=== PATIENT | male | born 1945 | race Caucasian/White ===

== ENCOUNTER 2017-07-15 12:16 | Emergency (ER) | payer OTHER ==
[~2017-07-15] VITALS: Ht 195.6 cm; Wt 102.3 kg
[~2017-07-15 12:16] MED LIST: CENTRUM SILVER1 CTB; ELIQUIS 5MG PO; LORTAB 5/500 501 TAB PO; MULTAQ400 MG PO; OMEGA-3 FISH1200 MG; TRAVATAN Z 5 ML5 ML; ZOCOR 10MG10 MG
[2017-07-15 12:20] VITALS: TEMP 97.7
[2017-07-15] MEDS ORDERED: LIPITOR 40MG TA40 MG PO (12:43)
[2017-07-15] MEDS ORDERED: ASPIRIN 81M81 MG/TA2 PO (12:44)
[2017-07-15] MEDS ORDERED: FLAX OIL1000 MG PO (12:46)
[2017-07-15] MEDS ORDERED: MAG-OX 400400 MG/TAB PO (12:48)
[2017-07-15 13:01] LABS: BASO # 0.1 (0.0-0.2); EOS # 1.8 (0.0-0.7); EOS % 20.6 % (0-4.0); GRAN # 4.6 (1.4-6.5); GRAN % 53.2 % (42.2-75.2); HEMOGLOBIN 14.7 g/dl (13.5-18.0); LYMPH # 1.6 (1.2-3.4); LYMPH % 18.2 % (20.0-51.0); MEAN CELL VOLUME 95 fl (80.0-100.0); MEAN CORPUSCULAR HEMOGLOBIN 31 pg (27.0-31.0); MEAN CORPUSCULAR HGB CONC 33 g/dl (33.0-37.0); MEAN PLATELET VOLUME 10.3 fl (7.4-10.4); MONO # 0.6 (0.1-0.6); MONO % 6.8 % (1.7-9.3); PLATELET COUNT 194 K/mm3 (130-400); RED BLOOD COUNT 4.73 M/mm3 (4.20-5.60); REDCELL DISTRIBUTION WIDTH-CV 13.5 % (11.5-14.5); WHITE BLOOD COUNT 8.7 K/mm3 (4.8-10.8)
[2017-07-15 13:09] LABS: PROTHROMBIN TIME 11.2 SECONDS (9.7-12.8)
[2017-07-15 13:11] LABS: ADJUSTED CALCIUM 9.4 mg/dL (8.4-10.2); ALANINE AMINOTRANSFERASE 39 U/L (21-72); ALBUMIN 4.2 gm/dL (3.5-5.0); ALKALINE PHOSPHATASE 116 U/L (50-136); ANION GAP 12 mmol/L (7-16); BLOOD UREA NITROGEN 14 mg/dL (9-20); CALCIUM 9.6 mg/dL (8.4-10.2); CARBON DIOXIDE 24 mmol/L (22-30); CHLORIDE 104 mmol/L (98-107); CREATININE, serum 0.83 mg/dL (0.66-1.25); GLUCOSE 99 mg/dL (74-106); POTASSIUM 4.5 mmol/L (3.4-5.0); SODIUM 140 mmol/L (137-145); TOTAL PROTEIN 7.1 gm/dL (6.4-8.2)
[2017-07-15 13:12] LABS: PARTIAL THROMBOPLASTIN TIME 33.6 SECONDS (26.0-37.0)
[2017-07-15 13:24] LABS: TROPONIN-I < 0.012 ng/mL (0.000-0.034)
[2017-07-15 13:27] LABS: ADD PATHOLOGY DIFF REVIEW NO
[2017-07-15 13:38] LABS: BAND 6 % (0-10); EOSINOPHIL 16 % (0-4); NEUTROPHILS 52 % (42.0-75.2); PLATELET ESTIMATE NORMAL (NORMAL); TOTAL CELLS COUNTED 100
[2017-07-15 15:20] VITALS: BP 106/58; PULSE 70
== END 2017-07-15 15:35 | disposition home or self-care (01) ==
LOC: COL.ER 12:16
PROVIDERS: Family Medicine
DX: I48.91 Unspecified atrial fibrillation (principal); I95.9 Hypotension, unspecified; Z79.82 Long term (current) use of aspirin
CPT/HCPCS: J2704; J7030

== ENCOUNTER 2017-11-29 12:41 | Observation (INO) | payer MEDICARE, OTHER ==
[2017-11-29] VITALS (10 sets, daily range): BP systolic 113–141; BP diastolic 50–67; PULSE 14–69; TEMP 97.2–98.9
[~2017-11-29] VITALS: Ht 195.6 cm; Wt 103.1 kg
[~2017-11-29 12:41] MED LIST changes: +ASPIRIN 81M81 MG/TA2 PO; +FLAX OIL1000 MG PO; +LIPITOR 40MG TA40 MG PO; +MAG-OX 400400 MG/TAB PO
[2017-11-29] MEDS ORDERED: COUMADIN 5MG5 MG/TAB PO (13:44)
[2017-11-29] MEDS ORDERED: PACERONE400 MG PO (13:45)
[2017-11-29] MEDS ORDERED: NATURAL FLAX1000 MG PO (13:46)
[2017-11-29] MEDS ORDERED: XALATAN EYE DROPS OU (13:46)
[2017-11-29] MEDS ORDERED: CENTRUM SILVER1 CTB PO (13:47)
[2017-11-30 02:14] VITALS: BP 119/60; PULSE 56; TEMP 97.4
[2017-11-30 05:54] VITALS: BP 120/59; PULSE 62; TEMP 98.4
[2017-11-30 06:47] LABS: HEMATOCRIT 39.1 % (42.0-52.0); HEMOGLOBIN 12.5 g/dl (13.5-18.0); MEAN CELL VOLUME 99 fl (80.0-100.0); MEAN CORPUSCULAR HEMOGLOBIN 32 pg (27.0-31.0); MEAN CORPUSCULAR HGB CONC 32 g/dl (33.0-37.0); MEAN PLATELET VOLUME 10.1 fl (7.4-10.4); PLATELET COUNT 202 K/mm3 (130-400); RED BLOOD COUNT 3.96 M/mm3 (4.20-5.60); REDCELL DISTRIBUTION WIDTH-CV 13.5 % (11.5-14.5)
[2017-11-30 10:03] VITALS: BP 101/52; PULSE 56; TEMP 97.7
[2017-11-30 14:10] VITALS: BP 107/52; PULSE 63; TEMP 97.6
[2017-11-30 18:15] VITALS: BP 104/50; PULSE 57; TEMP 98.6
[2017-11-30 22:27] VITALS: BP 109/46; PULSE 60; TEMP 97.5
[2017-12-01 02:10] VITALS: BP 105/55; PULSE 52; TEMP 98.4
[2017-12-01 05:11] VITALS: BP 127/55; PULSE 51; TEMP 98.3
[2017-12-01 09:16] VITALS: BP 117/47; PULSE 58; TEMP 97.5
== END 2017-12-01 11:40 | disposition home or self-care (01) ==
LOC: SDCO 12:41 → SURG 17:25 → SDCO 11-30 15:41 → SURG 11-30 15:41
PROVIDERS: Urology
DX: N40.1 Benign prostatic hyperplasia with lower urinary tract symptoms (principal); R33.8 Other retention of urine; R31.0 Gross hematuria; I35.1 Nonrheumatic aortic (valve) insufficiency; I25.10 Atherosclerotic heart disease of native coronary artery without angina pectoris; I10 Essential (primary) hypertension; Z90.49 Acquired absence of other specified parts of digestive tract; Z95.818 Presence of other cardiac implants and grafts; Z79.01 Long term (current) use of anticoagulants; Z87.891 Personal history of nicotine dependence; Z80.3 Family history of malignant neoplasm of breast; Z82.49 Family history of ischemic heart disease and other diseases of the circulatory system
CPT/HCPCS: OP; G0378; J0690; J1100; J2250; J2270; J2405; J2704; J3010; J7120

== ENCOUNTER 2017-12-12 17:07 | Inpatient (IN) | payer MEDICARE, OTHER ==
[~2017-12-12] VITALS: Ht 195.6 cm; Wt 103.2 kg
[~2017-12-12 17:07] MED LIST changes: +CENTRUM SILVER1 CTB PO; +COUMADIN 5MG5 MG/TAB PO; +NATURAL FLAX1000 MG PO; +PACERONE400 MG PO; +XALATAN EYE DROPS OU
[2017-12-12 17:49] LABS: BASO # 0.1 (0.0-0.2); BASO % 0.9 % (0.0-2.0); EOS # 1.8 (0.0-0.7); EOS % 17.2 % (0-4.0); GRAN # 6.2 (1.4-6.5); GRAN % 59.4 % (42.2-75.2); HEMATOCRIT 40.1 % (42.0-52.0); HEMOGLOBIN 13.1 g/dl (13.5-18.0); LYMPH # 1.8 (1.2-3.4); LYMPH % 17.5 % (20.0-51.0); MEAN CELL VOLUME 97 fl (80.0-100.0); MEAN CORPUSCULAR HEMOGLOBIN 32 pg (27.0-31.0); MEAN CORPUSCULAR HGB CONC 33 g/dl (33.0-37.0); MEAN PLATELET VOLUME 9.5 fl (7.4-10.4); MONO # 0.5 (0.1-0.6); MONO % 4.5 % (1.7-9.3); PLATELET COUNT 202 K/mm3 (130-400); RED BLOOD COUNT 4.14 M/mm3 (4.20-5.60); REDCELL DISTRIBUTION WIDTH-CV 13.3 % (11.5-14.5)
[2017-12-12 17:51] LABS: INR 1.9 (0.8-3.0)
[2017-12-12 18:01] LABS: ALBUMIN 4.2 gm/dL (3.5-5.0); BILIRUBIN,TOTAL 0.5 mg/dL (0.0-1.0); CREATININE, serum 0.84 mg/dL (0.66-1.25); POTASSIUM 3.9 mmol/L (3.4-5.0); TOTAL PROTEIN 7.1 gm/dL (6.4-8.2)
[2017-12-12 18:28] LABS: COLLECTION METHOD CATHETER
[2017-12-12 18:37] LABS: PH 6 (5-8); SQUAMOUS EPITHELIAL None Seen /hpf; URINE APPEARANCE Hazy; URINE BACTERIA Rare /hpf; URINE BILIRUBIN Negative (NEGATIVE); URINE BLOOD 2+ (NEGATIVE); URINE COLOR Red; URINE GLUCOSE 1+ (NEGATIVE); URINE KETONE Negative (NEGATIVE); URINE LEUKOCYTE ESTERASE Negative (NEGATIVE); URINE NITRATE Negative (NEGATIVE); URINE PROTEIN(semi-quant) 2+ (NEGATIVE); URINE RBC >50 /hpf; URINE UROBILINOGEN Negative (NEGATIVE)
[2017-12-12 20:33] VITALS: BP 156/68; PULSE 58; TEMP 98.5
[2017-12-12] MEDS ORDERED: FLAX OIL1000 MG PO (20:36)
[2017-12-13] VITALS (11 sets, daily range): BP systolic 100–125; BP diastolic 44–84; PULSE 56–65; TEMP 97.5–98.8
[2017-12-13 06:54] LABS: MEAN CELL VOLUME 101 fl (80.0-100.0); MEAN CORPUSCULAR HGB CONC 32 g/dl (33.0-37.0); MEAN PLATELET VOLUME 9.6 fl (7.4-10.4); PLATELET COUNT 176 K/mm3 (130-400); RED BLOOD COUNT 3.58 M/mm3 (4.20-5.60); REDCELL DISTRIBUTION WIDTH-CV 13.4 % (11.5-14.5)
[2017-12-13 07:01] LABS: HEMOGLOBIN 11.5 g/dl (13.5-18.0); MEAN CORPUSCULAR HEMOGLOBIN 32 pg (27.0-31.0)
== END 2017-12-13 18:05 | disposition home or self-care (01) | DRG 920 ==
LOC: COL.ER 17:07 → SURG 19:36
PROVIDERS: Emergency Medicine; Urology
PROC: 0TCD8ZZ Extirpation of Matter from Urethra, Via Natural or Artificial Opening Endoscopic (ICD-10-PCS; 2017-12-13)
PROC: 0TCC8ZZ Extirpation of Matter from Bladder Neck, Via Natural or Artificial Opening Endoscopic (ICD-10-PCS; 2017-12-13)
PROC: 0TCB8ZZ Extirpation of Matter from Bladder, Via Natural or Artificial Opening Endoscopic (ICD-10-PCS; principal; 2017-12-13 14:30)
DX: N99.840 Postprocedural hematoma of a genitourinary system organ or structure following a genitourinary system procedure (principal); D68.32 Hemorrhagic disorder due to extrinsic circulating anticoagulants; R31.9 Hematuria, unspecified; N40.1 Benign prostatic hyperplasia with lower urinary tract symptoms; R33.8 Other retention of urine; I25.10 Atherosclerotic heart disease of native coronary artery without angina pectoris; I48.0 Paroxysmal atrial fibrillation; I10 Essential (primary) hypertension; Z87.891 Personal history of nicotine dependence; Z79.01 Long term (current) use of anticoagulants
CPT/HCPCS: G0378; J0690; J0696; J2405; J2704; J3010; J7030

== ENCOUNTER 2018-03-26 19:03 | Emergency (ER) | payer MEDICARE, OTHER ==
[2018-03-26 19:08] VITALS: BP 156/70; PULSE 67; TEMP 97
== END 2018-03-26 20:23 | disposition home or self-care (01) ==
LOC: COL.ER 19:03
DX: S61.214A Laceration without foreign body of right ring finger without damage to nail, initial encounter (principal); I48.91 Unspecified atrial fibrillation; F17.210 Nicotine dependence, cigarettes, uncomplicated; Z79.82 Long term (current) use of aspirin; Z79.01 Long term (current) use of anticoagulants; W26.8XXA Contact with other sharp object(s), not elsewhere classified, initial encounter; Y92.009 Unspecified place in unspecified non-institutional (private) residence as the place of occurrence of the external cause

== ENCOUNTER → 2018-04-03 | Emergency (ER) | payer MEDICARE, OTHER ==
[2018-04-03 09:04] VITALS: BP 177/70; PULSE 55; TEMP 97.1
== END ==
LOC: COL.ER 08:49
DX: S61.214D Laceration without foreign body of right ring finger without damage to nail, subsequent encounter (principal); X58.XXXD Exposure to other specified factors, subsequent encounter

== ENCOUNTER 2019-01-08 14:08 | Inpatient (IN) | payer MEDICARE, OTHER ==
[2019-01-08] VITALS (227 sets, daily range): BP systolic 125; BP diastolic 57; PULSE 63; TEMP 97.6; O2SAT 90–100
[~2019-01-08] VITALS: Ht 195.6 cm; Wt 109.0 kg
[2019-01-08 15:48] LABS: BASO # 0.1 (0.0-0.2); BASO % 0.5 % (0.0-2.0); EOS # 0.6 (0.0-0.7); EOS % 4.9 % (0-4.0); GRAN # 9.8 (1.4-6.5); GRAN % 81.7 % (42.2-75.2); HEMATOCRIT 37.5 % (42.0-52.0); HEMOGLOBIN 12.3 g/dl (13.5-18.0); LYMPH % 8.1 % (20.0-51.0); MEAN CELL VOLUME 96 fl (80.0-100.0); MEAN CORPUSCULAR HEMOGLOBIN 32 pg (27.0-31.0); MEAN CORPUSCULAR HGB CONC 33 g/dl (33.0-37.0); MEAN PLATELET VOLUME 9.6 fl (7.4-10.4); MONO # 0.5 (0.1-0.6); MONO % 4.4 % (1.7-9.3); PLATELET COUNT 173 K/mm3 (130-400); RED BLOOD COUNT 3.89 M/mm3 (4.20-5.60); REDCELL DISTRIBUTION WIDTH-CV 13.6 % (11.5-14.5)
[2019-01-08 15:56] LABS: INR 2.2 (0.8-3.0); PROTHROMBIN TIME 24.6 SECONDS (9.7-12.8)
[2019-01-08 16:01] LABS: ALANINE AMINOTRANSFERASE 24 U/L (21-72); ALBUMIN 3.7 gm/dL (3.5-5.0); ALKALINE PHOSPHATASE 101 U/L (50-136); ANION GAP 6 mmol/L (7-16); AST,SGOT 17 U/L (15-37); BLOOD UREA NITROGEN 16 mg/dL (9-20); CALCIUM 8.7 mg/dL (8.4-10.2); CARBON DIOXIDE 26 mmol/L (22-30); CHLORIDE 103 mmol/L (98-107); CREATININE, serum 0.96 mg/dL (0.66-1.25); GLUCOSE 143 mg/dL (74-106); POTASSIUM 4.2 mmol/L (3.4-5.0); SODIUM 135 mmol/L (137-145); TOTAL PROTEIN 6.5 gm/dL (6.4-8.2)
[2019-01-08 16:04] LABS: C-REACTIVE PROTEIN < 0.5 mg/dL (0.0-0.9)
[2019-01-08 16:53] LABS: COLLECTION METHOD CLEAN CATCH
[2019-01-08 17:04] LABS: HYALINE CAST >12 /lpf; MUCOUS Present /lpf; PH 5 (5-8); SQUAMOUS EPITHELIAL 0-2 /hpf; URINE APPEARANCE Hazy; URINE BACTERIA None Seen /hpf; URINE BILIRUBIN Negative (NEGATIVE); URINE BLOOD Negative (NEGATIVE); URINE COLOR Amber; URINE GLUCOSE Negative (NEGATIVE); URINE KETONE Trace (NEGATIVE); URINE LEUKOCYTE ESTERASE Negative (NEGATIVE); URINE NITRATE Negative (NEGATIVE); URINE PROTEIN(semi-quant) Negative (NEGATIVE); URINE RBC 0-2 /hpf; URINE UROBILINOGEN >=4.0 mg/dL (NEGATIVE)
--- NOTE | 2019-01-08 19:40 | NUR ---
Telephone report received from LAUREN Neville.
[2019-01-08 20:01] LABS: HEMOGLOBIN 11.4 g/dl (13.5-18.0)
[2019-01-08 20:03] LABS: HEMATOCRIT 35.8 % (42.0-52.0)
[2019-01-08] MEDS ORDERED: FLAXSEED OIL1000 MG PO (20:26)
[2019-01-08] MEDS ORDERED: CENTRUM SILVER1 TAB PO (20:27)
--- NOTE | 2019-01-08 22:30 | NUR ---
Patient has order for toscano catheter, called hospitalist to request if catheter was needed at this time. Hospitalist stated could hold off on placing catheter if patient is able to void. Will give patient one hour then will re-evalute need to place catheter
--- NOTE | 2019-01-08 22:45 | NUR ---
Assisted patient to utilize bedside urinal. No concerns at this time.
[2019-01-09] VITALS (627 sets, daily range): BP systolic 100–148; BP diastolic 47–84; PULSE 62–65; TEMP 97.6–98.9; O2SAT 53–100
[2019-01-09 00:38] LABS: HEMOGLOBIN 10.2 g/dl (13.5-18.0)
[2019-01-09 00:42] LABS: HEMATOCRIT 31.7 % (42.0-52.0)
[2019-01-09 06:10] LABS: BASO % 0.6 % (0.0-2.0); EOS # 0.7 (0.0-0.7); EOS % 9.7 % (0-4.0); GRAN # 4.6 (1.4-6.5); GRAN % 65.7 % (42.2-75.2); HEMATOCRIT 32.1 % (42.0-52.0); HEMOGLOBIN 10.2 g/dl (13.5-18.0); LYMPH # 1.2 (1.2-3.4); LYMPH % 16.9 % (20.0-51.0); MEAN CELL VOLUME 99 fl (80.0-100.0); MEAN CORPUSCULAR HEMOGLOBIN 32 pg (27.0-31.0); MEAN CORPUSCULAR HGB CONC 32 g/dl (33.0-37.0); MEAN PLATELET VOLUME 9.9 fl (7.4-10.4); MONO # 0.5 (0.1-0.6); MONO % 6.5 % (1.7-9.3); PLATELET COUNT 148 K/mm3 (130-400); RED BLOOD COUNT 3.24 M/mm3 (4.20-5.60); REDCELL DISTRIBUTION WIDTH-CV 13.7 % (11.5-14.5)
[2019-01-09 06:19] LABS: ALBUMIN 3.2 gm/dL (3.5-5.0); BILIRUBIN,TOTAL 1.4 mg/dL (0.0-1.0); CALCIUM 8.3 mg/dL (8.4-10.2); POTASSIUM 4.4 mmol/L (3.4-5.0); TOTAL PROTEIN 5.8 gm/dL (6.4-8.2)
[2019-01-09 06:23] LABS: INR 1.5 (0.8-3.0); PROTHROMBIN TIME 16.5 SECONDS (9.7-12.8)
[2019-01-09 07:02] LABS: CREATININE, serum 0.85 mg/dL (0.66-1.25)
--- NOTE | 2019-01-09 08:00 | NUR ---
Assessment complete, patient resting in bed, denies pain "unless I move." Call light within reach.
--- NOTE | 2019-01-09 10:07 | NUR ---
Initial visit; Patient thanked [facility] for looking in on him and offering God's blessings and keeping him in [facility]'s prayers.
[2019-01-09 12:16] LABS: HEMOGLOBIN 10.3 g/dl (13.5-18.0)
[2019-01-09 12:19] LABS: HEMATOCRIT 32.4 % (42.0-52.0)
--- NOTE | 2019-01-09 13:10 | NUR ---
GRANT and SW student met with the patient to discuss discharge plan. The patient lives in [place] with his , Hope. He reports independence with ADLs and has a cane and crutches. The patient's PCP is Dr. Chito Williamson and he receives his medications at the [facility] in [place]. He reports no difficulties obtaining his meds. The patient does not have advanced directives in EMR, but he states that he does have them completed and that his PCP's office should have a copy. SW contacted his PCP's office and requested a copy. The patient plans to return home with his upon discharge. No indentified needs at this time, but SW to continue to follow.
--- NOTE | 2019-01-09 14:33 | NUR ---
Patient resting in bed visiting with his .
[2019-01-09 16:51] LABS: HEMATOCRIT 30.7 % (42.0-52.0); HEMOGLOBIN 9.9 g/dl (13.5-18.0)
--- NOTE | 2019-01-09 18:10 | NUR ---
Report called to LAUREN Jordan.
--- NOTE | 2019-01-09 18:10 | NUR ---
Waiting on room to be cleaned.
--- NOTE | 2019-01-09 19:00 | NUR ---
Viji Pederson reported to this nurse that pt is getting moved to room 323.
--- NOTE | 2019-01-09 19:35 | NUR ---
Patient transferred to [facility] via wheelchair, with all belongings. LAUREN Ramirez met us in the room.
[2019-01-09 20:16] LABS: HEMATOCRIT 34.7 % (42.0-52.0)
--- NOTE | 2019-01-09 22:21 | NUR ---
Pt arrived to floor, transferred from to bed on own, shift assessment complete, left Pt claa light in reach, bed in lowest position.
[2019-01-10 00:40] LABS: HEMATOCRIT 30.3 % (42.0-52.0); HEMOGLOBIN 9.8 g/dl (13.5-18.0)
[2019-01-10 00:51] VITALS: BP 103/36; PULSE 71; TEMP 97.8
[2019-01-10 04:30] VITALS: BP 127/56; PULSE 60; TEMP 98.1
[2019-01-11 12:31] LABS: BASO # 0.1 (0.0-0.2); BASO % 0.8 % (0.0-2.0); EOS # 1.9 (0.0-0.7); EOS % 23.9 % (0-4.0); GRAN # 3.8 (1.4-6.5); GRAN % 49.2 % (42.2-75.2); HEMATOCRIT 29.8 % (42.0-52.0); HEMOGLOBIN 9.7 g/dl (13.5-18.0); LYMPH # 1.5 (1.2-3.4); MEAN CELL VOLUME 98 fl (80.0-100.0); MEAN CORPUSCULAR HEMOGLOBIN 32 pg (27.0-31.0); MEAN CORPUSCULAR HGB CONC 33 g/dl (33.0-37.0); MEAN PLATELET VOLUME 9.4 fl (7.4-10.4); MONO # 0.5 (0.1-0.6); MONO % 6.8 % (1.7-9.3); PLATELET COUNT 156 K/mm3 (130-400); RED BLOOD COUNT 3.04 M/mm3 (4.20-5.60); REDCELL DISTRIBUTION WIDTH-CV 13.6 % (11.5-14.5)
[2019-01-11 12:47] LABS: HEMOGLOBIN 10.1 g/dl (13.5-18.0); MEAN CELL VOLUME 98 fl (80.0-100.0); MEAN CORPUSCULAR HEMOGLOBIN 31 pg (27.0-31.0); MEAN CORPUSCULAR HGB CONC 32 g/dl (33.0-37.0); MEAN PLATELET VOLUME 10.2 fl (7.4-10.4); PLATELET COUNT 170 K/mm3 (130-400); RED BLOOD COUNT 3.22 M/mm3 (4.20-5.60); REDCELL DISTRIBUTION WIDTH-CV 13.6 % (11.5-14.5)
[2019-01-11 12:48] LABS: HEMATOCRIT 31.7 % (42.0-52.0)
[2019-01-11 12:55] LABS: INR 1.1 (0.8-3.0); PROTHROMBIN TIME 12.3 SECONDS (9.7-12.8)
[2019-01-11 13:31] LABS: CALCIUM 8.5 mg/dL (8.4-10.2); CREATININE, serum 0.9 mg/dL (0.66-1.25); POTASSIUM 3.9 mmol/L (3.4-5.0)
== END 2019-01-10 13:30 | disposition home or self-care (01) | DRG 395 ==
LOC: COL.ER 14:08 → ICU 18:10 → SURG 01-09 19:20
PROVIDERS: Emergency Medicine; Nurse Practitioner Family; Physician Assistant
DX: K66.1 Hemoperitoneum (principal); I48.2 Chronic atrial fibrillation; Z79.01 Long term (current) use of anticoagulants; E78.5 Hyperlipidemia, unspecified
CPT/HCPCS: 99223-AI; C9113; J1170; J2405; J3430; J7030

== ENCOUNTER 2019-03-26 20:56 | Emergency (ER) | payer MEDICARE, OTHER ==
[~2019-03-26] VITALS: Ht 195.6 cm; Wt 109.1 kg
[~2019-03-26 20:56] MED LIST changes: +CENTRUM SILVER1 TAB PO; +FLAXSEED OIL1000 MG PO
[2019-03-26 21:11] VITALS: TEMP 98.5
[2019-03-26 21:19] LABS: COLLECTION METHOD CLEAN CATCH
[2019-03-26 21:28] LABS: MUCOUS Present /lpf; PH 5 (5-8); SQUAMOUS EPITHELIAL None Seen /hpf; URINE APPEARANCE Hazy; URINE BACTERIA Rare /hpf; URINE BILIRUBIN Negative (NEGATIVE); URINE BLOOD 3+ (NEGATIVE); URINE COLOR Amber; URINE GLUCOSE Negative (NEGATIVE); URINE KETONE Trace (NEGATIVE); URINE LEUKOCYTE ESTERASE Negative (NEGATIVE); URINE NITRATE Negative (NEGATIVE); URINE PROTEIN(semi-quant) 1+ (NEGATIVE); URINE RBC >50 /hpf; URINE UROBILINOGEN Negative (NEGATIVE)
[2019-03-26 22:04] LABS: BASO # 0.1 (0.0-0.2); BASO % 0.7 % (0.0-2.0); EOS % 11.1 % (0-4.0); GRAN % 68.5 % (42.2-75.2); HEMATOCRIT 40.3 % (42.0-52.0); HEMOGLOBIN 12.8 g/dl (13.5-18.0); LYMPH # 1.1 (1.2-3.4); LYMPH % 12.2 % (20.0-51.0); MEAN CELL VOLUME 95 fl (80.0-100.0); MEAN CORPUSCULAR HEMOGLOBIN 30 pg (27.0-31.0); MEAN CORPUSCULAR HGB CONC 32 g/dl (33.0-37.0); MEAN PLATELET VOLUME 9.7 fl (7.4-10.4); MONO # 0.6 (0.1-0.6); MONO % 7.3 % (1.7-9.3); PLATELET COUNT 170 K/mm3 (130-400); RED BLOOD COUNT 4.25 M/mm3 (4.20-5.60); REDCELL DISTRIBUTION WIDTH-CV 13.1 % (11.5-14.5)
[2019-03-26 22:16] LABS: ALBUMIN 3.9 gm/dL (3.5-5.0); BILIRUBIN,TOTAL 0.9 mg/dL (0.0-1.0); CALCIUM 9.1 mg/dL (8.4-10.2); CREATININE, serum 1.43 (0.66-1.25); POTASSIUM 4.2 mmol/L (3.4-5.0)
[2019-03-26] MEDS ORDERED: ASPIRIN 81M81 MG/TA2 PO (23:13)
[2019-03-26] MEDS ORDERED: ZOFRAN ODT4 MG PO (23:19)
[2019-03-26] MEDS ORDERED: NORCO 325 MG-51 TAB PO (23:19)
[2019-03-26] MEDS ORDERED: FLOMAX 0.40.4 MG/CAP PO (23:19)
[2019-03-26 23:35] VITALS: BP 140/72
[2019-03-27 00:43] VITALS: PULSE 65
== END 2019-03-27 00:44 | disposition home or self-care (01) ==
LOC: COL.ER 20:56
PROVIDERS: Emergency Medicine
DX: N13.2 Hydronephrosis with renal and ureteral calculous obstruction (principal); I48.91 Unspecified atrial fibrillation; E78.5 Hyperlipidemia, unspecified; Z90.49 Acquired absence of other specified parts of digestive tract; Z79.82 Long term (current) use of aspirin
CPT/HCPCS: J1170; J2405; J2765; J3010; J7030

== ENCOUNTER 2019-07-27 18:31 | Emergency (ER) | payer MEDICARE, OTHER ==
[~2019-07-27] VITALS: Ht 195.6 cm; Wt 111.4 kg
[~2019-07-27 18:31] MED LIST changes: +FLOMAX 0.40.4 MG/CAP PO; +NORCO 325 MG-51 TAB PO; +ZOFRAN ODT4 MG PO
[2019-07-27 18:35] VITALS: PULSE 64; TEMP 97.7
[2019-07-27 19:05] LABS: COLLECTION METHOD CLEAN CATCH
[2019-07-27 19:10] LABS: MUCOUS Present /lpf; PH 5 (5-8); SQUAMOUS EPITHELIAL 0-2 /hpf; URINE APPEARANCE Hazy; URINE BACTERIA None Seen /hpf; URINE BILIRUBIN Negative (NEGATIVE); URINE BLOOD 3+ (NEGATIVE); URINE COLOR Yellow; URINE GLUCOSE Negative (NEGATIVE); URINE KETONE Negative (NEGATIVE); URINE LEUKOCYTE ESTERASE Negative (NEGATIVE); URINE NITRATE Negative (NEGATIVE); URINE PROTEIN(semi-quant) Negative (NEGATIVE); URINE RBC >50 /hpf
[2019-07-27] MEDS ORDERED: COUMADIN 5MG5 MG/TAB PO (19:17)
[2019-07-27 22:06] VITALS: BP 142/75
== END 2019-07-27 22:08 | disposition home or self-care (01) ==
LOC: COL.ER 18:31
PROVIDERS: Nurse Practitioner
DX: N20.1 Calculus of ureter (principal); E78.5 Hyperlipidemia, unspecified; I48.91 Unspecified atrial fibrillation; Z87.442 Personal history of urinary calculi; Z79.01 Long term (current) use of anticoagulants
CPT/HCPCS: J1885; J7030

== ENCOUNTER 2020-07-10 09:11 | Emergency (ER) | payer MEDICARE, OTHER ==
[~2020-07-10] VITALS: Ht 195.6 cm; Wt 108.2 kg
[2020-07-10 09:19] VITALS: TEMP 97.8
[2020-07-10] MEDS ORDERED: ASPIRIN 81M81 MG/TA2 PO (09:48)
[2020-07-10] MEDS ORDERED: THE MEDICINE S200 M2 PO (09:49)
[2020-07-10] MEDS ORDERED: COZAAR 25MG25 MG/TAB PO (09:50)
[2020-07-10 10:04] LABS: BASO # 0.1 (0.0-0.2); BASO % 0.9 % (0.0-2.0); EOS % 15.2 % (0-4.0); GRAN # 3.9 (1.4-6.5); HEMATOCRIT 44.6 % (42.0-52.0); HEMOGLOBIN 14.5 g/dl (13.5-18.0); LYMPH % 15.7 % (20.0-51.0); MEAN CELL VOLUME 95 fl (80.0-100.0); MEAN CORPUSCULAR HEMOGLOBIN 31 pg (27.0-31.0); MEAN CORPUSCULAR HGB CONC 33 g/dl (33.0-37.0); MEAN PLATELET VOLUME 10.4 fl (7.4-10.4); MONO # 0.4 (0.1-0.6); MONO % 6.7 % (1.7-9.3); PLATELET COUNT 178 K/mm3 (130-400); REDCELL DISTRIBUTION WIDTH-CV 12.8 % (11.5-14.5)
[2020-07-10 10:06] LABS: PROTHROMBIN TIME 11.6 SECONDS (9.7-12.8)
[2020-07-10 10:08] LABS: ALANINE AMINOTRANSFERASE 23 U/L (4-49); ALBUMIN 4.3 gm/dL (3.5-5.0); ALKALINE PHOSPHATASE 126 U/L (50-136); ANION GAP 11 mmol/L (7-16); AST,SGOT 34 U/L (15-37); BILIRUBIN,TOTAL 1.5 mg/dL (0.0-1.0); BLOOD UREA NITROGEN 20 mg/dL (9-20); CARBON DIOXIDE 24 mmol/L (22-30); CHLORIDE 105 mmol/L (98-107); CREATININE, serum 1.03 (0.66-1.25); GLUCOSE 89 mg/dL (74-106); POTASSIUM 4.3 mmol/L (3.4-5.0); SODIUM 140 mmol/L (137-145); TOTAL PROTEIN 7.1 gm/dL (6.4-8.2)
[2020-07-10 10:28] LABS: TROPONIN-I < 0.012 ng/mL (0.000-0.035)
[2020-07-10 11:33] VITALS: BP 112/64; PULSE 68
== END 2020-07-10 11:30 | disposition home or self-care (01) ==
LOC: COL.ER 09:11
PROVIDERS: Emergency Medicine
DX: I48.91 Unspecified atrial fibrillation (principal); I48.92 Unspecified atrial flutter; Z79.82 Long term (current) use of aspirin
CPT/HCPCS: J2704; J7030

== ENCOUNTER 2022-06-05 18:11 | Inpatient (IN) | payer MEDICARE, OTHER ==
[~2022-06-05] VITALS: Ht 195.6 cm; Wt 120.0 kg
[~2022-06-05 18:11] MED LIST changes: +COZAAR 25MG25 MG/TAB PO; +THE MEDICINE S200 M2 PO
[2022-06-05 22:16] LABS: HEMOGLOBIN 11.6 g/dl (13.5-18.0); MEAN CELL VOLUME 97 fl (80.0-100.0); MEAN CORPUSCULAR HEMOGLOBIN 32 pg (27-31); MEAN CORPUSCULAR HGB CONC 33 g/dl (33.0-37.0); MEAN PLATELET VOLUME 9.8 fl (7.4-10.4); PLATELET COUNT 251 K/mm3 (130-400); RED BLOOD COUNT 3.66 M/mm3 (4.20-5.60)
[2022-06-05 22:19] LABS: HEMATOCRIT 35.6 % (42.0-52.0)
[2022-06-05 22:23] LABS: PROTHROMBIN TIME 11.6 SECONDS (9.7-12.8)
[2022-06-05 22:30] LABS: BAND 9 % (0-10); LYMPHOCYTE 9 % (20.0-51.0); NEUTROPHILS 77 % (42.0-75.2); PLATELET ESTIMATE NORMAL (NORMAL)
[2022-06-05 22:32] LABS: ALBUMIN 3.4 gm/dL (3.4-4.8); BILIRUBIN,TOTAL 0.7 mg/dL (0.2-1.2); CALCIUM 8.4 mg/dL (8.4-10.2); CREATININE, serum 1.28 mg/dL (0.72-1.25); MAGNESIUM 1.9 mg/dL (1.6-2.6); POTASSIUM 4.7 mmol/L (3.5-4.5); TOTAL PROTEIN 5.9 gm/dL (6.2-8.1)
[2022-06-06] VITALS (390 sets, daily range): BP systolic 96–155; BP diastolic 39–71; PULSE 68–77; TEMP 97.6–98.1; O2SAT 82–99
[2022-06-06 00:40] LABS: COLLECTION METHOD CLEAN CATCH
[2022-06-06 00:49] LABS: PH 6 (5-8); SQUAMOUS EPITHELIAL 0-2 /hpf (0-10); URINE APPEARANCE Clear (CLEAR/HAZY); URINE BACTERIA None Seen /hpf (NONE SEEN); URINE BLOOD 1+ (NEGATIVE); URINE COLOR Yellow (YELLOW); URINE GLUCOSE 3+ (NEGATIVE); URINE KETONE Negative (NEGATIVE); URINE NITRATE Negative (NEGATIVE); URINE PROTEIN(semi-quant) Negative (NEGATIVE); URINE RBC 0-2 /hpf (0-2); URINE UROBILINOGEN Negative (NEGATIVE)
--- NOTE | 2022-06-06 01:04 | NUR ---
Received report from ED nurseChristiano.
--- NOTE | 2022-06-06 01:24 | NUR ---
Patient arrives to ICU room 3 via ED stretcher. Patient is alert and oriented; transferred to ICU bed via sliding board. Patient reports significant pain in right knee. Knee is swollen upon assessment and tender to touch. Pedal pulses palpable bilaterally. All vitals within normal limits. Bed in lowest position, all alarms on.
--- NOTE | 2022-06-06 02:00 | NUR ---
Patient's belongings include street clothes and shoes, a gold-colored necklace, and a silver-colored wedding band. Patient states his wallet and cell phone were sent home with . He denies having glasses, dentures, or hearing aids. Belongings placed in patient's closet.
[2022-06-06 04:16] LABS: BASO % 0.3 % (0.0-2.0); EOS % 0.1 % (0.0-4.0); GRAN # 12.1 K/mm3 (1.4-6.5); GRAN % 88.8 % (42.2-75.2); LYMPH # 0.6 K/mm3 (1.2-3.4); LYMPH % 4.3 % (20.0-51.0); MEAN CELL VOLUME 97 fl (80.0-100.0); MEAN CORPUSCULAR HEMOGLOBIN 31 pg (27-31); MEAN CORPUSCULAR HGB CONC 32 g/dl (33.0-37.0); MEAN PLATELET VOLUME 10.2 fl (7.4-10.4); MONO # 0.8 K/mm3 (0.1-0.6); MONO % 5.8 % (1.7-9.3); PLATELET COUNT 193 K/mm3 (130-400); RED BLOOD COUNT 3.19 M/mm3 (4.20-5.60); REDCELL DISTRIBUTION WIDTH-CV 12.9 % (11.5-14.5)
[2022-06-06 04:31] LABS: CALCIUM 8.2 mg/dL (8.4-10.2); CREATININE, serum 1.09 mg/dL (0.72-1.25); POTASSIUM 4.9 mmol/L (3.5-4.5)
--- NOTE | 2022-06-06 10:21 | NUR ---
Patient moved to room 304 due to covid positive status.home health care social worker contacted the patient's Hope ([phone]) contacted to complete intake. Patients reports that she too just tested covid positive but is not having symptoms yet. She states that they just got back from traveling to [place] where they spent 2 weeks. Patient is independent with his ADL's and does not utilize any DME to assist with mobility. Patient has no home oxygen needs. PCP is and they utilize [facility] in [place] for prescriptions with no cost difficulty. Hope states that the patient does have a DPOA-HC established listing her as his agent. Spoke with Hope about the care plan, the need for surgery and post acute rehab. Hope would like a referral sent to out [facility] first and then the local [place] facilities. She states that this is the second time the patient has broken his femur and that the first time he did not need surgery. Informed her that we will keep her up to date with his progress. Discharge plan: post acute rehab. Referrals pending.
--- NOTE | 2022-06-06 12:52 | NUR ---
PT TRANSFERRED TO ROOM 304 AT 0840. ASSESSMENT DONE DURING TRANSFER. VSS, PT DENIES PAIN. R LEG NOTED TO BE SWOLLEN, PEDAL PULSES STRONG BILATERALLY. REPORT GIVEN TO LAUREN BENNETT.
--- NOTE | 2022-06-06 13:27 | NUR ---
PATIENT ALERT AND ORIENTED. BL/LE WITH BROWN STAINING, LARGE NUMBER OF VARICOSE VEINS ON ANKLES AND FEET. PULSES PRESENT AND STRONG IN BOTH FEET. CAP <3SEC. RIGHT KNEE VERY EDEMATOUS, PATIENT HAS C/O 4 (10) PAIN. PRN MEDS GIVEN. NO COUGH, DIFFICULTY BREATHING, LUNGS CLEAR. PATIENT USING URINAL. PATIENT REFUSED ICE FOR AFFECTED EXTREMITY. PATIENT HAS DARK STAINING TO BRUISING ON LOWER ARMS, STATES THERE IS NO PAIN AT THESE AREAS. FINGER TIPS ARE VERY PALE WITH CAP REFILL >3 SECS. PLAN FOR SURGICAL FIXATION TOMORROW.
--- NOTE | 2022-06-06 20:14 | NUR ---
PATIENT RESTING COMFORATBLY IN BED. PAIN MANAGED WITH EMAR ORDERED PO PAIN MEDS. ELEVATION AND REST. PATIENT REFUSED ICE. PATIENT HAS LITTLE URINE OUTPUT. TOLERATING ORAL INPUT, AND IV FLUIDS, STATES HE IS NOT UNCOMFORTABLE. PLAN FOR SURGERY TOMORROW (?).
[2022-06-07 03:36] VITALS: BP 114/47; PULSE 66; TEMP 97.9
--- NOTE | 2022-06-07 05:40 | NUR ---
PT HAD UNEVENTFUL SHIFT. RECEIVED PAIN MEDICATIONS Q4H PER JAN INSTRUCTIONS. STATES THAT THE PAIN IS BEHIND THE KNEE. NO OTHER CONCERNS.
--- NOTE | 2022-06-07 07:55 | NUR ---
PATIENT IN BED RESTING, AFFECTED KNEE RESTING ON ROLLED BLANKETS. PAIN STATED TO BE A 4 OUT OF 10. PEDAL PULSES PATENT. SCDS ON MELINDA/LE. THIGH HIGH ENEDELIA ON L LEG. PATIENT ALERT/ ORIENTED x 4. NO DIFFICULTY BREATHING. LUNGS CLEAR, BOWELS ACTIVE. NO COMPLAINTS OF DIFFICULTY URINATING. NO BOWEL MOVEMENT NOTED. NPO SINCE MIDNIGHT. NS RUNNING AT 75ML/HR. PLAN FOR ORIF TODAY, NO TIME CURRENTLY SCHEDULED.
[2022-06-07 08:26] VITALS: BP 110/87; PULSE 68; TEMP 97.5
[2022-06-07 12:09] VITALS: BP 118/37; PULSE 67; TEMP 97.9
[2022-06-07 18:30] VITALS: BP 113/51; PULSE 77; TEMP 97.7
--- NOTE | 2022-06-07 19:00 | NUR ---
BEDSIDE SHIFT REPORT FROM LAUREN BENNETT. THE PATIENT HAD RETURNED FROM SURGERY AND HAS AN AQUACELL TO THE RIGHT LATERAL KNEE. SWELLING HAS DECREASED SIGNIFICANTLY. CMS INTACT. NO OTHER CONCERNS RIGHT NOW.
--- NOTE | 2022-06-07 19:08 | NUR ---
PATIENT RETURNED FROM PACU ALERT AND ORIENTED. NO COMPLAINTS OF PAIN. VITALS STARTED, EXTREMITY AND SURGICAL SITE REVIEWED. CAP REFILL LESS THAN 3 SEC. CONTROL OVER LOWER EXTREMETIES. SENSATION STILL NUMB, BUT TACTILE. PULSES PATENT. DINNER ORDERD. INSTRUCTED TO CALL FOR PAIN WHEN TINGLING BEGINS IN LEG, TO STAY AHEAD OF PAIN NOT MISHA.
--- NOTE | 2022-06-07 19:12 | NUR ---
PATIENT WENT TO OR AT APPROXIMATELY 1530, RETURNED AT 1830. NO COMPLAINTS OF PAIN ON RETURN. VITALS STABLE. LITTLE URINE OUTPUT. 400 ML OF LR CREDIT TO FLOOR, 0 URINE OUTPUT IN OR. DRESSINGS CLEAN DRY AND INTACT. SCDS REAPPLIED ON RETURN. PATIENT EDUCATED ON PAIN MANAGEMENT AND WHEN TO CALL.
[2022-06-07 19:25] VITALS: BP 134/55; PULSE 77; TEMP 97.6
--- NOTE | 2022-06-07 21:10 | NUR ---
DURING MED PASS, THE PATIENT WAS SCHEDULED TO GET IV ANCEF, IV ON FLUSHING LEAKS. STARTED NEW IV IN THE RIGHT AC. FLUSHES WELL. IV ABX GIVEN AT THIS TIME. THE PATIENT DENIES ANY OTHER NEEDS. MEDICATIONS GIVEN PER JAN.
[2022-06-07 23:11] VITALS: BP 130/49; PULSE 82; TEMP 98.7
[2022-06-08] VITALS (13 sets, daily range): BP systolic 103–137; BP diastolic 42–56; PULSE 69–80; TEMP 97.3–98.7
--- NOTE | 2022-06-08 07:52 | NUR ---
PATIENT AWAKE AND ALERT. PAIN MEDS JUST GIVEN BY OFF GOING RN. PAIN LEVEL RATED AT 2 OF 10. DISCUSSED ACCEPTABLE PAIN LEVEL, PATIENT STATES A 4 BEING TOLERABLE. PATIENT HAS NOT HAD BOWEL MOVEMENT SINCE ADMISSION. BOWELS ACTIVE IN ALL QUADRANTS. BOWEL MEDS ORDERED. PT/OT ORDERED TO START TODAY. DRESSINGS C/D/I. PULSES PRESENT AND PALPABLE. PATIENT COMPLIANT WITH IS. SCD'S AND ENEDELIA HOSE ON. CALL DONALD IN REACH, PHONE IN REACH, BELONGINGS GIVEN AND PATIENT COMFORTABLE. BED LOW AND LOCKED. PATIENT STILL ON COVID PRECAUTIONS.
--- NOTE | 2022-06-08 13:57 | NUR ---
Clinical updates faxed to [facility] and [facility]
--- NOTE | 2022-06-08 15:14 | NUR ---
PATIENT RESTING IN BED, NO COMPLAINTS OF PAIN. REPORT GIVEN TO LAUREN LUCAS.
[2022-06-08 15:59] LABS: BASO % 0.1 % (0.0-2.0); EOS % 0.3 % (0.0-4.0); GRAN # 6.8 K/mm3 (1.4-6.5); GRAN % 78.8 % (42.2-75.2); LYMPH # 0.8 K/mm3 (1.2-3.4); LYMPH % 8.7 % (20.0-51.0); MEAN CELL VOLUME 101 fl (80.0-100.0); MEAN CORPUSCULAR HGB CONC 32 g/dl (33.0-37.0); MEAN PLATELET VOLUME 10.1 fl (7.4-10.4); MONO % 11.1 % (1.7-9.3); PLATELET COUNT 171 K/mm3 (130-400); RED BLOOD COUNT 2.14 M/mm3 (4.20-5.60); REDCELL DISTRIBUTION WIDTH-CV 13.2 % (11.5-14.5)
[2022-06-08 16:06] LABS: CALCIUM 8.4 mg/dL (8.4-10.2); CREATININE, serum 0.95 mg/dL (0.72-1.25); HEMATOCRIT 21.5 % (42.0-52.0); HEMOGLOBIN 6.8 g/dl (13.5-18.0); MEAN CORPUSCULAR HEMOGLOBIN 32 pg (27-31); POTASSIUM 4.4 mmol/L (3.5-4.5)
--- NOTE | 2022-06-08 16:40 | NUR ---
CRITICAL HGB 6.8, ROBERT BRITTON NOTIFIED
[2022-06-08 23:48] LABS: HEMATOCRIT 21.5 % (42.0-52.0); HEMOGLOBIN 7.1 g/dl (13.5-18.0)
[2022-06-09 03:34] VITALS: BP 127/46; PULSE 69; TEMP 97.7
[2022-06-09 06:19] LABS: BASO % 0.1 % (0.0-2.0); EOS # 0.6 K/mm3 (0.0-0.7); EOS % 8.3 % (0.0-4.0); GRAN # 4.5 K/mm3 (1.4-6.5); GRAN % 60.2 % (42.2-75.2); LYMPH # 1.5 K/mm3 (1.2-3.4); LYMPH % 20.3 % (20.0-51.0); MEAN CORPUSCULAR HGB CONC 32 g/dl (33.0-37.0); MONO # 0.7 K/mm3 (0.1-0.6); PLATELET COUNT 164 K/mm3 (130-400); RED BLOOD COUNT 2.42 M/mm3 (4.20-5.60); REDCELL DISTRIBUTION WIDTH-CV 16.3 % (11.5-14.5)
[2022-06-09 06:21] LABS: HEMATOCRIT 22.5 % (42.0-52.0); HEMOGLOBIN 7.3 g/dl (13.5-18.0); MEAN CELL VOLUME 93 fl (80.0-100.0); MEAN CORPUSCULAR HEMOGLOBIN 30 pg (27-31)
[2022-06-09 06:38] LABS: CREATININE, serum 0.83 mg/dL (0.72-1.25); POTASSIUM 4.1 mmol/L (3.5-4.5)
[2022-06-09 08:00] VITALS: BP 122/43; PULSE 68; TEMP 98.2
--- NOTE | 2022-06-09 10:58 | NUR ---
Duane at [facility] advised he did not receive initial referral. [facility] faxed it to him. Angela at [facility] declined referral as they cannot take new admits at this time due to covid outbreak.
[2022-06-09 12:00] VITALS: BP 125/49; PULSE 72; TEMP 98
[2022-06-09] MEDS ORDERED: ASPI325T6 PO (14:29)
--- NOTE | 2022-06-09 15:18 | NUR ---
Samira, IPR liason, notified [facility] that they are able to accept the patient today. SW contacted and updated the patient's , Hope. She is in agreement to the plan. The patient is to discharge today, 06/09, to [facility]. No additional needs at this time.
--- NOTE | 2022-06-09 15:39 | NUR ---
PATIENT TO BE DISCHARGED A MEDICAL PATIENT AND ADMITTED AN IPR PATIENT. WILL REMAIN IN [facility] FOR QUARTENTINE PERIOD. NO SYMPTOMS AT THIS TIME. WILL KEEP IV ACCESS FOR THE TIME BEING.
== END 2022-06-09 15:41 | DRG 480 ==
LOC: COL.ER 18:11 → SURG 21:41 → MEDICAL 21:41 → ICU 21:42 → MEDICAL 06-06 09:22
PROVIDERS: Orthopaedic Surgery Sports Medicine; Physician Assistant; Student in an Organized Health Care Education/Training Program; ADMIT Internal Medicine
PROC: 0QSB04Z Reposition Right Lower Femur with Internal Fixation Device, Open Approach (ICD-10-PCS; principal; 2022-06-07 16:00)
DX: S72.401A Unspecified fracture of lower end of right femur, initial encounter for closed fracture (principal); U07.1 COVID-19; I10 Essential (primary) hypertension; E78.5 Hyperlipidemia, unspecified; I48.91 Unspecified atrial fibrillation; W10.9XXA Fall (on) (from) unspecified stairs and steps, initial encounter; Y93.01 Activity, walking, marching and hiking; M17.0 Bilateral primary osteoarthritis of knee; G89.11 Acute pain due to trauma; D72.829 Elevated white blood cell count, unspecified; R73.9 Hyperglycemia, unspecified; D53.9 Nutritional anemia, unspecified; I25.10 Atherosclerotic heart disease of native coronary artery without angina pectoris; Z85.828 Personal history of other malignant neoplasm of skin; Z23 Encounter for immunization; Y92.89 Other specified places as the place of occurrence of the external cause; Z79.82 Long term (current) use of aspirin; Z90.49 Acquired absence of other specified parts of digestive tract; Z91.041 Radiographic dye allergy status; Z72.89 Other problems related to lifestyle; Z87.891 Personal history of nicotine dependence
CPT/HCPCS: A9284; C1713; C1776; J0690; J1100; J1170; J2250; J2405; J2704; J2795; J3010; J7030; P9016

== ENCOUNTER 2022-06-09 15:35 | Inpatient (IN) | payer MEDICARE, OTHER ==
[~2022-06-09] VITALS: Ht 177.8 cm; Wt 117.8 kg
[~2022-06-09 15:35] MED LIST changes: +ASPI325T6 PO
--- NOTE | 2022-06-09 15:56 | NUR ---
The patient is COVID positive. SW contacted the patient's , Hope (ph#[phone]), to complete intake; as the patient is new to [facility]. The patient lives in [place] with his . She reports that the patient is independent with ADLs as a cane and crutches. They have walk-in showers. The patient's PCP is Dr. Jordan Coffey and he receives his medications from [facility] in . The patient does not have a DPOA-HC in EMR, but Hope states that the patient does has one completed and that it designates her.
[2022-06-09 16:00] VITALS: BP 118/46; PULSE 81
[2022-06-09 18:21] VITALS: BP 134/87; PULSE 82; TEMP 97.9
[2022-06-09 20:00] VITALS: BP 133/52; PULSE 74; TEMP 97.8
--- NOTE | 2022-06-09 23:12 | NUR ---
Pt alert and oriented. Follows commands. Calm and cooperative. Up independently with walker. Continent of bowel and bladder. Denies pain at this time. Pt reports soreness when OOB ambulating. On room air, satting WNL. Tolerating PO. Shift assessment performed. Medications administered per orders and education provided. VS stable. Pt afebrile. BP stable. Satting WNL on room air. No significant skin issues noted. Pt has dressing from ORIF procedure on right groin/right hip area. Dressing clean/dry/intact. No edema/redness/drainage noted at sites. Fall precautions in place. Pt does not report any questions at this time. Bed low and locked, call urbano within reach. No new concerns at this time.
--- NOTE | 2022-06-10 05:25 | NUR ---
No adverse events overnight. Pt alert and oriented. Denies chest pain/SOB. No cough noted. VS stable. Afebrile. Satting WNL on room air. ORIF dressing clean/dry/intact. Pt up to void overnight. Pt does not report pain at this time. monitoring manager d/c'd. Tolerating PO. Bed low and locked, call urbano within reach. Pt does not report any questions at this time, no new concerns at this time.
[2022-06-10 05:30] VITALS: BP 128/50; PULSE 69; TEMP 97.9
[2022-06-10 07:16] LABS: HEMATOCRIT 21.8 % (42.0-52.0); HEMOGLOBIN 7.1 g/dl (13.5-18.0)
--- NOTE | 2022-06-10 07:43 | NUR ---
PT AWAKE, VSS, ORIENT AND ALERT X4, DENIES COMPLAINTS THIS MORNING
[2022-06-10 18:00] VITALS: BP 140/59; PULSE 77; TEMP 98.2
--- NOTE | 2022-06-10 18:17 | NUR ---
PT HAD A CALM DAY, VSS, ORIENT AND ALERT X4, ON TYLENOL FOR PAIN SCHEDULED. ALL DUE MEDICATION GIVEN NO ADVERSE REACTION NOTED.
--- NOTE | 2022-06-11 00:53 | NUR ---
Pt alert and oriented, follows commands. Reported pain of the right hip/leg this evening and requested pain medication. Prn pain medication administered x1 per orders with reported pain relief. Incision dressing on the right hip/leg is clean/dry/intact. Pt up to ambulate steady with the walker. Pt reported having a BM this evening. Tolerating PO. Fall precautions in place. Shift assessment performed. Medications administered per orders and education provided. VS stable. On room air. Afebrile. No significant skin issues noted. Pt does not report any questions at this time. Bed low and locked, call urbano within reach. No concerns at this time.
--- NOTE | 2022-06-11 04:54 | NUR ---
No adverse events overnight. Pt alert and oriented. Prn pain medication administered x1 overnight. Incision dressing remains clean/dry/intact. Minor swelling at incision site. No bleeding/drainage noted. VS stable. Pt tolerating PO. Steady gait with walker. Pt up to void adequately. Fall precautions in place. Pt does not report any questions at this time. Bed low and locked, call urbano within reach. No new concerns at this time.
[2022-06-11 05:45] VITALS: BP 128/58; PULSE 69; TEMP 98.1
--- NOTE | 2022-06-11 13:50 | NUR ---
PT ORIENT AND ALERT X4, VS STABLE, NO ADVERSE EVENTS NOTED, RAISED COMPLAINTS OF PAIN, DUE PRN PAIN MEDS GIVEN. SOME BRUISING ON THE RIGHT LEG ABOVE THE KNEE TO THE CALF. DR Gavin notified, said he will order ultra sound to be done on monday, meanwhile continue to monitor pt.
[2022-06-11 15:34] LABS: HEMATOCRIT 22.3 % (42.0-52.0); HEMOGLOBIN 7.5 g/dl (13.5-18.0)
--- NOTE | 2022-06-11 17:41 | NUR ---
pt had a calm day, orient and alert, vs stable no adverse reaction noted, due meds given , c/o of pay raised throughout the day prn pain meds given, pt denies ant other complaints.dressing dry and intact.
[2022-06-11 18:40] VITALS: BP 137/93; PULSE 86; TEMP 97.2
--- NOTE | 2022-06-12 00:39 | NUR ---
Pt alert and oriented, follows commands. Reported some right-sided soreness, prn tylenol administered per orders. Pt's right inner thigh has some purple/red bruising with a bandaid applied to a small spot that the pt reports was bleeding. Pt's incision dressing on the RLE is clean/dry/intact. Pt tolerating PO. Steady gait with the walker. Fall precautions in place. Voiding adequately. VS stable. Afebrile. On room air. No cough noted. Pt denies chest pain/SOB. Shift assessment performed. Medications administered per orders and education provided. Pt accidentally pulled out IV this evening. Pt is IPR status, a new IV has not been placed. Pt does not report any questions at this time. Bed low and locked, call urbano within reach. No concerns at this time.
[2022-06-12 06:15] VITALS: BP 151/65; PULSE 75; TEMP 97.5
--- NOTE | 2022-06-12 07:16 | NUR ---
No adverse events overnight. Pt alert and oriented. Pain medication administered per orders. Tolerating PO. Fall precautions in place. No bleeding from right inner thigh overnight. Bruising noted on the right LE. VS stable. Bed low and locked, called urbano within reach. No new concerns at this time.
--- NOTE | 2022-06-12 07:55 | NUR ---
PT IS AWAKE, ORIENT AND ALERT X4, VSS, SITTING ON A CHAIR WITH THE RIGHT LEG ELEVATED ,STATES THAT HE WOULD LIKE TO GET SOME PAIN MEDICATION TO START OFF HIS DAY.
[2022-06-12 17:49] VITALS: BP 142/52; PULSE 74; TEMP 98
--- NOTE | 2022-06-12 18:19 | NUR ---
pt hada calm day, noadverse reaction noted, vss, orient and alert x4, independent , due meds given without problem, dressing dry and intact right to calf still bruised.
--- NOTE | 2022-06-12 20:30 | NUR ---
Initial shift assessment done- denies pain at this time- did just get some Tylenol,, right leg is edematous to hip with dark bruising from knee to upper thigh,going for R/knee ultrasound tomorrow- pt hoping to go home by Monday-
--- NOTE | 2022-06-13 06:00 | NUR ---
No changes- VSS this morning
[2022-06-13 06:14] VITALS: BP 135/58; PULSE 64; TEMP 97.9
[2022-06-13 08:22] VITALS: BP 156/65; PULSE 79; TEMP 97.6
--- NOTE | 2022-06-13 10:40 | NUR ---
[employer] THAT PERFORMED UNILATERAL DUPLEX INFORMED ME PATIENT SHOWED NUMEROUS SMALL CLOTS, NONE ABOVE KNEE. PA NOTIFIED.
[2022-06-13 10:55] LABS: CALCIUM 8.2 mg/dL (8.4-10.2); CREATININE, serum 0.79 mg/dL (0.72-1.25)
[2022-06-13 11:40] LABS: MEAN CELL VOLUME 99 fl (80.0-100.0); MEAN CORPUSCULAR HGB CONC 32 g/dl (33.0-37.0); MEAN PLATELET VOLUME 9.5 fl (7.4-10.4); PLATELET COUNT 236 K/mm3 (130-400); RED BLOOD COUNT 2.35 M/mm3 (4.20-5.60); REDCELL DISTRIBUTION WIDTH-CV 18.2 % (11.5-14.5)
[2022-06-13 11:53] LABS: HEMATOCRIT 23.3 % (42.0-52.0); HEMOGLOBIN 7.5 g/dl (13.5-18.0); MEAN CORPUSCULAR HEMOGLOBIN 32 pg (27-31)
[2022-06-13 12:10] LABS: ANISOCYTOSIS 2+; BAND 6 % (0-10); EOSINOPHIL 8 % (0-4); LYMPHOCYTE 6 % (20.0-51.0); NEUTROPHILS 77 % (42.0-75.2); PLATELET ESTIMATE NORMAL (NORMAL); POLYCHROMASIA 1+
[2022-06-13 12:11] LABS: HYPOCHROMIA 1+
[2022-06-13 13:12] LABS: INR 1.1 (0.8-3.0); PROTHROMBIN TIME 12.2 SECONDS (9.7-12.8)
[2022-06-13 13:15] LABS: PARTIAL THROMBOPLASTIN TIME 26.7 SECONDS (26.0-37.0)
[2022-06-13 17:46] VITALS: BP 146/54; PULSE 67; TEMP 98
--- NOTE | 2022-06-13 20:30 | NUR ---
Initial shift assessment done- would like a pain pill for right leg discomfort- roxicodone given, riight leg remains very edematous to hip and dark bruising from knee to hip /warm. Is on a heparin drip at 2200 units/hr- lab here to draw hepxa at this time-
[2022-06-14 05:47] VITALS: BP 137/54; PULSE 65; TEMP 98.4
--- NOTE | 2022-06-14 05:51 | NUR ---
Did get a few hours of sleep last night- has the heparin drip at 20.5cc/hr, the most recent hepxa was goal so next is due at 1045 this morning- was medicated with the roxocodne and tylenol during the night for right leg pain
[2022-06-14 10:41] LABS: INR 1.1 (0.8-3.0); PROTHROMBIN TIME 12.6 SECONDS (9.7-12.8)
[2022-06-14 12:00] VITALS: BP 135/47; PULSE 72
[2022-06-14 16:00] VITALS: BP 121/57; PULSE 74
--- NOTE | 2022-06-14 20:00 | NUR ---
PATIENT IS A&O. VSS. PATIENT ON COVID ISOLATION. O2 SATS IN THE UPPER 90'S ON RA. NO C/O SOB OR CHEST PAIN. HEPARIN GTT INFUSING VIA PUMP INTO RIGHT FORARM. PATIENT HAS DVT IN RLE POST OP ORIF ON 06/07. TEDS TO BLE. PATIENT C/O MILD DISCOMFORT IN RLE BUT REPORTS IT IS BETTER AFTER DOSE OF PAIN MEDS FROM DAY SHIFT. GAVE PRN TYLENOL WITH HS MEDS. POSITIVE PEDAL PULSES TO BLE. RLE DRESSING NOTED SMALL DRAINAGE TO AQUACEL. WBAT TO RLE. PATIENT IS INDEPENDENT IN ROOM. PT/OT CONSULTED. HEAD TO TOE ASSESSMENT COMPLETE, SEE CHARTING. PATIENT TALKING WITH FAMILY ON THE PHONE. NO OTHER NEEDS AT THIS TIME. CALL LIGHT IN REACH.
--- NOTE | 2022-06-14 23:00 | NUR ---
HEPXA OF 0.45, NO CHANGE PER PROTOCOL.
--- NOTE | 2022-06-15 03:00 | NUR ---
HEPXA OF 0.48 IS AT GOAL. NO CHANGE PER PROTOCOL.
[2022-06-15 04:07] LABS: MEAN CORPUSCULAR HGB CONC 32 g/dl (33.0-37.0); MEAN PLATELET VOLUME 9.4 fl (7.4-10.4); PLATELET COUNT 218 K/mm3 (130-400); RED BLOOD COUNT 2.13 M/mm3 (4.20-5.60); REDCELL DISTRIBUTION WIDTH-CV 18.8 % (11.5-14.5)
[2022-06-15 04:11] LABS: HEMATOCRIT 22.2 % (42.0-52.0); MEAN CELL VOLUME 104 fl (80.0-100.0); MEAN CORPUSCULAR HEMOGLOBIN 33 pg (27-31)
[2022-06-15 04:15] LABS: INR 1.3 (0.8-3.0); PROTHROMBIN TIME 15.3 SECONDS (9.7-12.8)
[2022-06-15 05:09] VITALS: BP 139/53; PULSE 67; TEMP 97.7
[2022-06-15 07:30] VITALS: BP 148/57; PULSE 76; TEMP 98.7
--- NOTE | 2022-06-15 11:47 | NUR ---
Patient cleared of isolation protocols. Independent in room with walker. Patient IPR status, will transfer today. Patient pain 6 of 10 after working with PT/OT. PRN Roxicodone and Tylenol given. Patient resting in bed, neurologically intact. Bowels active, no urinary incontinence. Breathing normal, no oxygen demands. Call light with in reach.
[2022-06-15 12:00] VITALS: BP 135/70; PULSE 72
--- NOTE | 2022-06-15 13:19 | NUR ---
Report given to Viktor at 1300. Patient transported by wheelchair by GINGER Manzo to room 339 in IPR. Heparin gtt discontinued and IV lines disconnected before transfer.
[2022-06-15 13:48] LABS: HEMATOCRIT 27.2 % (42.0-52.0); HEMOGLOBIN 8.6 g/dl (13.5-18.0)
--- NOTE | 2022-06-15 14:58 | NUR ---
Pt transferred to IPR unit around 1330 and was escorted by OT staff. Pt. had PT until 1400. Assessment completed - see [facility]. Orientation to room provided. Aquacell dressing noted to LLE - small amount of drainage noted on. Ice pack given for comfort/pain control. Lovenox Inj initiated as per EMAR. Pt. denies additional needs. Call light is within his reach. Pt remains on Mod I status
--- NOTE | 2022-06-15 16:23 | NUR ---
Pt resting upright in bed. PRN roxicodone and scheduled Tylenol given for pain. RLE elevated on pillow. Aquacell remains with small amt. of drainage but is intact. He denies additional needs. Call light is within his reach
[2022-06-15 16:43] VITALS: BP 110/48; PULSE 74; TEMP 97.7
[2022-06-16 03:25] LABS: INR 2.3 (0.8-3.0); PROTHROMBIN TIME 26.7 SECONDS (9.7-12.8)
[2022-06-16 05:02] VITALS: BP 125/65; PULSE 64; TEMP 97.5
--- NOTE | 2022-06-16 05:15 | NUR ---
pt up ad gallo in room w/walker, oxycodone given @HS for c/o pain, reports BM prior to bed, slept well.
--- NOTE | 2022-06-16 10:37 | NUR ---
Patient scheduled to discharge later today. At [facility], patient is presented with the [facility].IM form. Education provided and patient verbalized his agreement with discharge plan. Signed original placed in the patient's chart and copy provided back to the patient. Patient is scheduled to discharge home with out patient therapy. Patient verbalized that he and his have discussed their options previously and would like to be established with [facility] in [place] for his therapy. Educated the patient that once orders are faxed, they will call him to schedule an appointment.
[2022-06-16] MEDS ORDERED: FERRO-TIME325 MG PO (11:46)
[2022-06-16] MEDS ORDERED: COUMADIN4 MG PO (11:47)
[2022-06-16] MEDS ORDERED: OXY IR5 MG PO (11:48)
--- NOTE | 2022-06-16 14:00 | NUR ---
Patient's discharge orders and clinical information faxed to [facility] in . they will call the patient to schedule his first appointment.
--- NOTE | 2022-06-16 14:54 | NUR ---
1500 - PATIENT DISCHARGE PACKET AND EDUCATION PROVIDED. FOLLOWUP APPTS MADE BY RN. INCISION CARE PROVIDED AND INSTRUCTIONS GIVEN. ALL QUESTIONS ANSWERED. PATIENT SAFELY TRANSPORTED TO ED ENTRANCE TO FAMILY WITH STAFF.
== END 2022-06-16 15:16 | disposition home or self-care (01) | DRG 559 ==
LOC: MEDICAL 15:54
PROVIDERS: Internal Medicine; Physical Medicine & Rehabilitation Sports Medicine; Physician Assistant; ADMIT Internal Medicine
DX: S72.401D Unspecified fracture of lower end of right femur, subsequent encounter for closed fracture with routine healing (principal); U07.1 COVID-19; I82.441 Acute embolism and thrombosis of right tibial vein; I48.91 Unspecified atrial fibrillation; E78.5 Hyperlipidemia, unspecified; D64.89 Other specified anemias; R26.89 Other abnormalities of gait and mobility; Z91.041 Radiographic dye allergy status; W01.0XXD Fall on same level from slipping, tripping and stumbling without subsequent striking against object, subsequent encounter; Y92.009 Unspecified place in unspecified non-institutional (private) residence as the place of occurrence of the external cause; Z79.82 Long term (current) use of aspirin; Z73.6 Limitation of activities due to disability; Z95.818 Presence of other cardiac implants and grafts; Z79.899 Other long term (current) drug therapy
CPT/HCPCS: A9284; J1644; J1650

== ENCOUNTER 2024-01-25 09:58 | Emergency (ER) | payer MEDICARE, OTHER ==
[~2024-01-25] VITALS: Ht 195.6 cm; Wt 115.9 kg
[~2024-01-25 09:58] MED LIST changes: +COUMADIN4 MG PO; +FERRO-TIME325 MG PO; +OXY IR5 MG PO
[2024-01-25 10:04] VITALS: TEMP 96.9
[2024-01-25] MEDS ORDERED: Cefepime 2 G in Water For Injection,Sterile 20 ML IV ONE (10:30)
[2024-01-25 10:33] LABS: BASO % 0.4 % (0.0-2.0); EOS # 0.6 K/mm3 (0.0-0.7); EOS % 7.5 % (0.0-4.0); GRAN # 5.7 K/mm3 (1.4-6.5); GRAN % 71.2 % (42.2-75.2); HEMOGLOBIN 12.1 g/dl (13.5-18.0); LYMPH % 11.9 % (20.0-51.0); MEAN CELL VOLUME 98 fl (80.0-100.0); MEAN CORPUSCULAR HEMOGLOBIN 31 pg (27-31); MEAN CORPUSCULAR HGB CONC 32 g/dl (33.0-37.0); MEAN PLATELET VOLUME 9.5 fl (7.4-10.4); MONO # 0.7 K/mm3 (0.1-0.6); MONO % 8.6 % (1.7-9.3); PLATELET COUNT 239 K/mm3 (130-400); RED BLOOD COUNT 3.89 M/mm3 (4.20-5.60); REDCELL DISTRIBUTION WIDTH-CV 13.5 % (11.5-14.5)
[2024-01-25 10:49] LABS: ALBUMIN 3.6 gm/dL (3.4-4.8); BILIRUBIN,TOTAL 2.8 mg/dL (0.2-1.2); C-REACTIVE PROTEIN 1.59 mg/dL (0.00-0.50); CALCIUM 9.2 mg/dL (8.4-10.2); CREATININE, serum 0.93 mg/dL (0.72-1.25); POTASSIUM 4.3 mmol/L (3.5-4.5); TOTAL PROTEIN 6.7 gm/dL (6.2-8.1)
[2024-01-25 10:50] LABS: ERYTHROCYTE SEDIMENTATION RATE 33 mm/hr (0-30)
[2024-01-25] MEDS ORDERED: DOXYCYCLINE 10100 MG PO (12:11)
[2024-01-25] MEDS ORDERED: AMOXICILLIN875 MG PO (12:11)
[2024-01-25] MEDS ORDERED: NORCO 325 MG-51 TAB PO (12:14)
[2024-01-25 18:41] VITALS: BP 124/64; PULSE 83
== END 2024-01-25 12:56 | disposition home or self-care (01) ==
LOC: COL.ER 09:58
PROVIDERS: Physician Assistant
DX: L03.115 Cellulitis of right lower limb (principal); S80.211A Abrasion, right knee, initial encounter; Z98.890 Other specified postprocedural states; W01.0XXA Fall on same level from slipping, tripping and stumbling without subsequent striking against object, initial encounter
CPT/HCPCS: J0692

== ENCOUNTER 2024-03-11 09:13 | Day surgery (SDC) | payer MEDICARE, OTHER ==
[~2024-03-11] VITALS: Ht 195.8 cm; Wt 113.0 kg
[~2024-03-11 09:13] MED LIST changes: +AMOXICILLIN875 MG PO; +DOXYCYCLINE 10100 MG PO; +LR 1,000 ML IV SCH
[2024-03-11] MEDS ORDERED: NS Flush 10 ML SYRINGE PRN ICA (09:45)
[2024-03-11 10:19] LABS: HEMATOCRIT 41.7 % (42.0-52.0); HEMOGLOBIN 13.4 g/dl (13.5-18.0); MEAN CELL VOLUME 94 fl (80.0-100.0); MEAN CORPUSCULAR HEMOGLOBIN 30 pg (27-31); MEAN CORPUSCULAR HGB CONC 32 g/dl (33.0-37.0); MEAN PLATELET VOLUME 9.9 fl (7.4-10.4); PLATELET COUNT 176 K/mm3 (130-400); RED BLOOD COUNT 4.42 M/mm3 (4.20-5.60); REDCELL DISTRIBUTION WIDTH-CV 13.6 % (11.5-14.5)
[2024-03-11] MEDS ORDERED: ASPIRIN E.C. 8181 MG PO (10:19)
[2024-03-11 10:20] VITALS: BP 144/95; PULSE 70; TEMP 97.7
[2024-03-11 10:24] LABS: PROTHROMBIN TIME 10.9 SECONDS (9.7-12.8)
[2024-03-11 10:27] LABS: PARTIAL THROMBOPLASTIN TIME 30.7 SECONDS (26.0-37.0)
[2024-03-11 10:58] LABS: CALCIUM 8.8 mg/dL (8.4-10.2); POTASSIUM 4.6 mEq/L (3.5-4.5)
[2024-03-11 11:05] LABS: THYROID STIMULATING HORMONE 5.307 uIU/mL (0.350-4.940)
[2024-03-11 11:17] LABS: CREATININE, serum 0.91 mg/dL (0.72-1.25)
[2024-03-11] MEDS ORDERED: Lidocaine PF 2% (20 MG/ML) 5 ML VIAL ONE (11:21)
--- NOTE | 2024-03-11 12:07 | NUR ---
See moderate sedation flowsheet and anesthesia notes.
--- NOTE | 2024-03-11 12:26 | NUR ---
Bedside report completed with Vashti AGUILAR. Call light within reach, last set of vitals reviewed, fluids at 30 mlh/hr. Vashti AGUILAR denies questions concerns at this time. [phone] for questions.
[2024-03-11 12:30] VITALS: BP 146/76; PULSE 52
--- NOTE | 2024-03-11 12:30 | NUR ---
PT SITS UP IN BED, AWAKE AND ALERT, IN ROOM NOW, PT TAKES WATER DECLINES SNACK OR JUICE, WATCHES TV, EKG DONE, NO C/O PAIN OR SOB
[2024-03-11 12:45] VITALS: BP 149/78; PULSE 53
[2024-03-11 13:00] VITALS: BP 144/78; PULSE 52
[2024-03-11 13:15] VITALS: BP 146/80; PULSE 55
--- NOTE | 2024-03-11 13:30 | NUR ---
DR LANDA INTO SEE PT, IV D'CD AND PT UP AND DRESSED IN ROOM, REVIEWED DISCHARGE INST. WITH PT ON NO NEW MEDS.FOLLOWUP APPT, AND MODERATE SEDATION PRECAUTIONS GIVEN. PT DISCHARGED VIA W/C AT 1345 TO CAR
[2024-03-11] MEDS ORDERED: NS Flush 10 ML SYRINGE BID ICA SCH (21:00)
== END 2024-03-11 13:45 | disposition home or self-care (01) ==
LOC: COL.CAR 09:13
PROVIDERS: Internal Medicine Cardiovascular Disease
DX: I48.0 Paroxysmal atrial fibrillation (principal); I10 Essential (primary) hypertension; I34.0 Nonrheumatic mitral (valve) insufficiency; I51.7 Cardiomegaly; R53.83 Other fatigue; Z87.891 Personal history of nicotine dependence; Z95.818 Presence of other cardiac implants and grafts; Z79.82 Long term (current) use of aspirin; Z79.899 Other long term (current) drug therapy
CPT/HCPCS: J2704; J7120